=== PATIENT | male | born 1995 | race Caucasian/White ===

== ENCOUNTER 2021-02-17 20:50 | Emergency (ER) | payer OTHER ==
[~2021-02-17 20:50] MED LIST: ASMANEX HFA13 G1 INH; ASMANEX220 MC1 INH; BREO ELLIPTA 11 EACH INH; BUSPIRONE HCL15 MG PO; CLARITIN10 MG PO; CYCLOBENZAPRINE10 MG PO; DUONEB 2.5-0.5M1 AMP INH; DUONEB 2.5-0.5M1 AMP NEB; LEVAQUIN750 MG PO; MEDROL 4MG DOSEP4 MG PO; MONTELUKAST SOD10 MG PO; PREDNISONE 20MG20 MG PO; TESSALON PERLE100 MG PO; TOPROL XL 25MG25 MG PO; VENLAFAXINE HC150 MG PO; VENLAFAXINE HCL75 M1 PO; VIBRAMYCIN100 MG PO; VRAYLAR3 MG PO; ZYRTEC10 M3 PO; ZYRTEC10 MG PO
[2021-02-17] MEDS ORDERED: PREDNISONE 10MG10 MG PO (21:35)
[2021-02-17] MEDS ORDERED: VENTOLIN HFA IN18 GM INH (21:35)
== END 2021-02-17 23:48 | disposition home or self-care (01) ==
LOC: FER 20:50
DX: J45.901 Unspecified asthma with (acute) exacerbation (principal); Z88.1 Allergy status to other antibiotic agents; Z88.8 Allergy status to other drugs, medicaments and biological substances
CPT/HCPCS: 71045; 94640; 94664; J2930

== ENCOUNTER 2021-05-01 13:08 | Emergency (ER) | payer OTHER ==
[~2021-05-01 13:08] MED LIST changes: +PREDNISONE 10MG10 MG PO; +VENTOLIN HFA IN18 GM INH
[2021-05-01] MEDS ORDERED: BACLOFEN 10MG T10 MG PO (14:40)
[2021-05-01] MEDS ORDERED: NAPROXEN500 MG PO (14:40)
== END 2021-05-01 16:44 | disposition home or self-care (01) ==
LOC: FER 13:08
DX: G89.29 Other chronic pain (principal); M54.5 Low back pain; Z88.1 Allergy status to other antibiotic agents; Z87.09 Personal history of other diseases of the respiratory system
CPT/HCPCS: 96372; 99283; J1100; J1885

== ENCOUNTER 2021-08-03 22:25 | Emergency (ER) | payer OTHER ==
[~2021-08-03 22:25] MED LIST changes: +BACLOFEN 10MG T10 MG PO; +NAPROXEN500 MG PO
[2021-08-03 23:07] LABS: BASOPHIL 0.6 % (0-2); EOSINOPHIL 1.1 % (0-5); HCT 41.4 % (42.0-52.0); HGB 14.3 g/dl (13.2-18.0); LYMPHOCYTE 20.3 % (15-48); MCHC 34.5 g/dL (32.0-36.0); MONOCYTE 6.8 % (0-12); MPV 10.4 fL (6.0-9.5); NRBC 0; PLT 223 K/uL (150-400); RBC 4.76 M/uL (4.70-6.00); RDW 12.5 % (11.5-14.0); WBC 10.1 K/uL (4.0-10.5)
[2021-08-03] MEDS ORDERED: BREO ELLIPTA 11 EACH INH (23:28)
[2021-08-03] MEDS ORDERED: MEDROL 4MG DOSEP4 MG PO (23:28)
[2021-08-03 23:34] LABS: ALBUMIN 3.9 g/dL (3.4-5.0); BILIRUBIN - TOTAL 0.5 mg/dL (0.2-1.0); BUN/CREAT RATIO (CALC) 14.1 RATIO; C-REACTIVE PROTEIN 1.2 mg/dL (<=0.90); CREATININE 0.71 mg/dL (0.67-1.17); GLOBULIN (CALCULATION) 2.8 g/dL; POTASSIUM 3.5 mmol/L (3.5-5.1); TOTAL PROTEIN 6.7 g/dL (6.4-8.2)
[2021-08-04] MEDS ORDERED: DUONEB 2.5-0.5M1 AMP INH (00:19)
== END 2021-08-04 00:38 | disposition home or self-care (01) ==
LOC: FER 22:25
PROVIDERS: Emergency Medicine
DX: J45.901 Unspecified asthma with (acute) exacerbation (principal); Z20.822 Contact with and (suspected) exposure to COVID-19
CPT/HCPCS: 36415; 71045; 80053; 82728; 83615; 83735; 85025; 86140; 94640; 94664; J2930; U0002

== ENCOUNTER 2021-09-29 22:43 | Emergency (ER) | payer OTHER ==
[2021-09-30 00:58] LABS: CORONAVIRUS 2019 SARS-COV-2 NEGATIVE (NEGATIVE); INFLUENZA A NAA NEGATIVE (NEGATIVE)
[2021-09-30] MEDS ORDERED: DUONEB 2.5-0.5M1 AMP INH (01:17)
[2021-09-30] MEDS ORDERED: MEDROL 4MG DOSEP4 MG PO (01:17)
== END 2021-09-30 01:30 | disposition home or self-care (01) ==
LOC: FER 22:43
PROVIDERS: Emergency Medicine Emergency Medical Services
DX: J45.901 Unspecified asthma with (acute) exacerbation (principal); F17.210 Nicotine dependence, cigarettes, uncomplicated; Z20.822 Contact with and (suspected) exposure to COVID-19; Z79.899 Other long term (current) drug therapy
CPT/HCPCS: 71045; 93005; 94640; J7512; U0002